=== PATIENT | male | born 1970 | race Asian ===

== ENCOUNTER 2020-10-15 11:56 | Emergency (ER) | payer OTHER ==
[2020-10-15 12:04] VITALS: BP 115/86; PULSE 83; TEMP 98.3; BMI 22.4
== END 2020-10-15 14:02 | disposition home or self-care (01) ==
LOC: JER 11:56
DX: J09.X2 Influenza due to identified novel influenza A virus with other respiratory manifestations (principal)
CPT/HCPCS: 87804; 99283-25; C9803; U0003

== ENCOUNTER 2024-10-09 18:08 | Emergency (ER) | payer OTHER ==
[2024-10-09 18:16] VITALS: BP 131/92; PULSE 78; RESP 16; TEMP 97.6; BMI 22.3
[2024-10-09] MEDS ORDERED: BISACODYL 10 MG SUPP.RECT ONE (19:35)
[2024-10-09] MEDS ORDERED: DOCUSATE SODIUM 100 MG CAPSULE (FP) PO ONE (19:35)
[2024-10-09] MEDS ORDERED: MAGNESIUM CITRATE 300 ML BOTTLE ONE (19:35)
[2024-10-09] MEDS: BISACODYL 10 MG SUPP.RECT PR ONE (19:37)
[2024-10-09] MEDS: MAGNESIUM CITRATE 300 ML BOTTLE PO ONE (19:37)
[2024-10-09] MEDS: DOCUSATE SODIUM 100 MG CAPSULE (FP) PO ONE (19:37)
== END 2024-10-09 20:10 | disposition home or self-care (01) ==
LOC: JERFT 18:08 → JER 18:08 → JERFT 20:10
DX: K59.09 Other constipation (principal)
CPT/HCPCS: 74019-TC-FY; 99283-25